=== PATIENT | female | born 1945 | race Caucasian/White ===

== ENCOUNTER 2021-12-21 05:29 | Day surgery (SDC) | payer OTHER ==
[2021-12-19 14:53] VITALS: BMI 22.2
[2021-12-21 10:51] VITALS: BP 126/66; PULSE 61; RESP 20; TEMP 98.2
== END 2021-12-21 11:21 | disposition home or self-care (01) ==
LOC: JASU-ENDO 05:29
PROVIDERS: ATTEND Internal Medicine Gastroenterology
PROC: 0DB98ZX Excision of Duodenum, Via Natural or Artificial Opening Endoscopic, Diagnostic (ICD-10-PCS; 2021-12-21)
PROC: 0DB78ZX Excision of Stomach, Pylorus, Via Natural or Artificial Opening Endoscopic, Diagnostic (ICD-10-PCS; 2021-12-21)
PROC: 0DB68ZX Excision of Stomach, Via Natural or Artificial Opening Endoscopic, Diagnostic (ICD-10-PCS; 2021-12-21)
PROC: 0DB28ZX Excision of Middle Esophagus, Via Natural or Artificial Opening Endoscopic, Diagnostic (ICD-10-PCS; 2021-12-21)
PROC: 0DB38ZX Excision of Lower Esophagus, Via Natural or Artificial Opening Endoscopic, Diagnostic (ICD-10-PCS; 2021-12-21)
PROC: 0DJD8ZZ Inspection of Lower Intestinal Tract, Via Natural or Artificial Opening Endoscopic (ICD-10-PCS; principal; 2021-12-21 09:00)
DX: Z12.11 Encounter for screening for malignant neoplasm of colon (principal); K22.10 Ulcer of esophagus without bleeding; K22.89 Other specified disease of esophagus; K20.80 Other esophagitis without bleeding; K29.40 Chronic atrophic gastritis without bleeding; K64.8 Other hemorrhoids; K59.89 Other specified functional intestinal disorders; Z86.010 Personal history of colon polyps
CPT/HCPCS: 43239; G0105; 88104; 88305-TC; 88312-TC; 88342-TC